=== PATIENT | male | born 1940 | race Caucasian/White ===

== ENCOUNTER → 2017-10-17 | Outpatient (CLI) | payer OTHER | LOC: BMCIMAGING 08:07 | PROVIDERS: ATTEND Orthopaedic Surgery | DX: G89.18 Other acute postprocedural pain (principal); M16.11 Unilateral primary osteoarthritis, right hip; Z96.651 Presence of right artificial knee joint ==

== ENCOUNTER 2017-11-27 02:47 | Emergency (ER) | payer OTHER ==
--- NOTE | 2017-11-27 03:02 | EDPHY ---
H & P Stated Complaint: DIZZY, NAUSEA, LIGHTHEADED Time Seen by Provider: 11/27/17 03:02 HPI/ROS: HPI CHIEF COMPLAINT: Dizziness with nausea HISTORY OF PRESENT ILLNESS: This is a very pleasant 77-year-old male, history of hypertension, presents emergency room with dizziness and nausea. Patient reports that around 10:00 p.m. Last night he was closing the curtain losing got dizzy her room spinning sensation with associated nausea. No headache. No neck pain. Denies chest pain or shortness of breath. Denies palpitations. It is worse when he moves his head side to side. This then resolved. States he went to bed and woke up with a leg crampy went to get out of bed stretches leg got dizzy again. Room spinning sensation. It is since now improved on almost resolved since arriving to the emergency room. He decided come the emergency room as it lasted over an hour and he felt nauseous with this. Past Medical History: Hypertension, hepatitis-A, duodenitis Past Surgical History: No recent surgery Social History: Denies drugs alcohol tobacco. Family History: Noncontributory ROS REVIEW OF SYSTEMS: A comprehensive 10 point review of systems is otherwise negative aside from elements mentioned in the history of present illness. Exam Constitutional appears well nontoxic no acute distress, triage nursing summary reviewed, vital signs reviewed, awake/alert. Eyes normal conjunctivae and sclera, EOMI, PERRLA. HENT normal inspection, atraumatic, moist mucus membranes, no epistaxis, neck supple/ no meningismus, no raccoon eyes. Respiratory clear to auscultation bilaterally, normal breath sounds, no respiratory distress, no wheezing. Cardiovascular rate normal, regular rhythm, no murmur, no edema, distal pulses normal. Gastrointestinal soft, non-tender, no rebound, no guarding, normal bowel sounds, no distension, no pulsatile mass. Genitourinary no CVA tenderness. Musculoskeletal no midline vertebral tenderness, full range of motion, no calf swelling, no tenderness of extremities, no meningismus, good pulses, neurovascularly intact. Skin pink, warm, & dry, no rash, skin atraumatic. Neurologic awake, alert and oriented x 3, AAOx3, moves all 4 extremities equally, motor intact, sensory intact, CN II-XII intact, normal cerebellar, normal vision, normal speech. Psychiatric normal mood/affect. Heme/Lymph/Immune no lymphadenopathy. Differential Diagnosis: Includes but is not limited to in a particular order acute vertigo, benign positional vertigo, Meniere's disease, posterior circulation stroke, intracranial bleed, electrolyte disturbance, acute HI, cardiac arrhythmia, orthostatic hypertension, dehydration Medical Decision Making: Plan for this patient IV establishment full phototypesetting equipment monitor IV fluid bolus after orthostatic vital signs, meclizine p. O., IV Valium , check electrolytes, EKG, troponin, CT head without and re-evaluate. Patient' s history most likely is vertigo. Benign positional. Will see if we can improvement with medications here. His symptoms have improved on her own since arriving. Re-evaluation: EKG interpretation by me on record in [employer] system. Impression time of EKG 3:12 a.m., sinus rhythm rate of 92, first-degree AV block present CA interval 224. No ST elevation no significant ST depression. No signs of cardiac arrhythmia. CT head without contrast called to me by Dr. Chavira. No acute bleed or stroke visualized. ED x-ray chest one view negative for acute cardiopulmonary disease. 0519: Blood work is reviewed. Negative troponin. Negative D-dimer. Electrolytes appropriate. Will re-evaluate at this time 0519AM: Re-examination at this time this patient is feeling 100% better. He denies any dizziness. Denies chest pain or shortness of breath. He denies any room spinning sensation with movement. Feels much better after meclizine p.o. And IV Valium and IV fluids. Vital signs have been stable. Current vital signs blood pressure 134/81, heart rate 91, pulse ox 96% on room air. 0521: Patient ambulated well throughout the emergency room without difficulty. Has a steady gait. Neurological exam is unremarkable. He would like to be discharged home. I will give him a prescription for meclizine. I have discussed return precautions with him he understands return emergency room if develops worsening dizziness, headache, vomiting can't ambulate worsening symptoms or questions or concerns. Clinical exam and workup consistent with most likely benign positional vertigo. No acute red flags to indicate posterior circulation stroke. No double vision , not sudden onset, worse with head movement. No significant vomiting. No trouble with speech. Dizziness worse with head movement. Source: Patient - Personal History Current Tetanus Diphtheria and Acellular Pertussis (TDAP): Unsure - Medical/Surgical History Hx Asthma: No Hx Chronic Respiratory Disease: No Hx Diabetes: No Hx Cardiac Disease: No Hx Renal Disease: No Hx Cirrhosis: No Hx Alcoholism: No Hx HIV/AIDS: No Hx Splenectomy or Spleen Trauma: No Other PMH: HTN, HEP A, KNEE REPLACEMENT, YANETH SHOULDER REPLACMENT, GI BLEED - Social History Smoking Status: Never smoked Constitutional: Initial Vital Signs Temperature (C) 36.5 C 11/27/17 02:56 Heart Rate 93 11/27/17 02:56 Respiratory Rate 16 11/27/17 02:56 Blood Pressure 124/66 H 11/27/17 02:56 O2 Sat (%) 90 L 11/27/17 02:56 O2 Delivery Mode Nasal Cannula O2 (L/minute) 2 Allergies/Adverse Reactions: ibuprofen Allergy (Intermediate, Verified 03/27/15 15:23) Other-Enter Comments ciprofloxacin [From Cipro] Allergy (Mild, Verified 03/27/15 15:23) ciprofloxacin HCl [From Cipro] Allergy (Mild, Verified 03/27/15 15:23) Home Medications: Medication Instructions Recorded Acetaminophen [Tylenol Extra 500 mg PO HS 02/03/15 Strength] Lisinopril [Zestril] 10 mg PO DAILY 02/03/15 Meclizine HCl [Meclizine HCl 25 mg 25 mg PO BID #10 tab 11/27/17 (RX,OTC)] Medical Decision Making - Data Points Laboratory Results: Laboratory Results 11/27/17 03:13 11/27/17 03:55 11/27/17 11/27/17 11/27/17 04:30 03:55 03:55 WBC RBC Hgb Hct MCV MCH MCHC RDW Plt Count MPV Neut % (Auto) Lymph % (Auto) [place] % (Auto) Eos % (Auto) Baso % (Auto) Nucleat RBC Rel Count Absolute Neuts (auto) Absolute Lymphs (auto) Absolute Monos (auto) Absolute Eos (auto) Absolute Basos (auto) Absolute Nucleated RBC Immature Gran % Immature Gran # PT 13.0 SEC SEC REJ (12.0-15.0) INR 0.96 REJ (0.83-1.16) APTT 21.7 SEC L SEC REJ (23.0-38.0) D-Dimer 0.40 ug/mLFEU ug/mLFEU (0.00-0.50) Turbidity Sodium Potassium Chloride Carbon Dioxide Anion Gap BUN Creatinine Estimated GFR Glucose Calcium Magnesium 1.8 mg/dL mg/dL (1.6-2.3) Total Bilirubin 0.4 mg/dL mg/dL (0.1-1.4) Conjugated Bilirubin 0.4 mg/dL mg/dL (0.0-0.5) Unconjugated Bilirubin 0.0 mg/dL mg/dL (0.0-1.1) AST 22 IU/L IU/L (17-59) ALT 29 IU/L IU/L (21-72) Alkaline Phosphatase 42 IU/L IU/L (38-126) Creatine Kinase 158 IU/L IU/L (0-224) CK-MB (CK-2) Fraction 3.60 ng/mL H ng/mL (0.00-3.19) CK-MB (CK-2) % Pending Creatine Kinase Interp Pending Troponin I < 0.012 ng/mL ng/mL (0.000-0.034) NT-Pro-B Natriuret Pep Pending Total Protein 5.8 g/dL L g/dL (6.3-8.2) Albumin 3.2 g/dL L g/dL (3.5-5.0) Specimen Hemolysis 11/27/17 11/27/17 11/27/17 03:55 03:13 03:13 WBC RBC Hgb Hct MCV MCH MCHC RDW Plt Count MPV Neut % (Auto) Lymph % (Auto) [place] % (Auto) Eos % (Auto) Baso % (Auto) Nucleat RBC Rel Count Absolute Neuts (auto) Absolute Lymphs (auto) Absolute Monos (auto) Absolute Eos (auto) Absolute Basos (auto) Absolute Nucleated RBC Immature Gran % Immature Gran # PT REJ INR REJ APTT REJ D-Dimer REJ Turbidity REJ Sodium 140 mEq/L mEq/L REJ (135-145) Potassium 4.0 mEq/L mEq/L REJ (3.5-5.2) Chloride 108 mEq/L mEq/L REJ (97-110) Carbon Dioxide 24 mEq/l mEq/l REJ (22-31) Anion Gap 8 mEq/L mEq/L REJ (8-16) BUN 21 mg/dL mg/dL REJ (7-23) Creatinine 0.8 mg/dL mg/dL REJ (0.7-1.3) Estimated GFR > 60 REJ Glucose 114 mg/dL H mg/dL REJ (70-100) Calcium 8.7 mg/dL mg/dL REJ (8.5-10.4) Magnesium REJ Total Bilirubin REJ Conjugated Bilirubin REJ Unconjugated Bilirubin REJ AST REJ ALT REJ Alkaline Phosphatase REJ Creatine Kinase REJ CK-MB (CK-2) Fraction REJ CK-MB (CK-2) % Creatine Kinase Interp Troponin I REJ NT-Pro-B Natriuret Pep REJ Total Protein REJ Albumin REJ Specimen Hemolysis REJ 11/27/17 03:13 WBC 6.88 10^3/uL 10^3/uL (3.80-9.50) RBC 4.82 10^6/uL 10^6/uL (4.40-6.38) Hgb 15.6 g/dL g/dL (13.7-17.5) Hct 46.1 % % (40.0-51.0) MCV 95.6 fL fL (81.5-99.8) MCH 32.4 pg pg (27.9-34.1) MCHC 33.8 g/dL g/dL (32.4-36.7) RDW 13.5 % % (11.5-15.2) Plt Count 200 10^3/uL 10^3/uL (150-400) MPV 10.0 fL fL (8.7-11.7) Neut % (Auto) 47.5 % % (39.3-74.2) Lymph % (Auto) 38.2 % % (15.0-45.0) [place] % (Auto) 9.3 % % (4.5-13.0) Eos % (Auto) 4.1 % % (0.6-7.6) Baso % (Auto) 0.6 % % (0.3-1.7) Nucleat RBC Rel Count 0.0 % % (0.0-0.2) Absolute Neuts (auto) 3.27 10^3/uL 10^3/uL (1.70-6.50) Absolute Lymphs (auto) 2.63 10^3/uL 10^3/uL (1.00-3.00) Absolute Monos (auto) 0.64 10^3/uL 10^3/uL (0.30-0.80) Absolute Eos (auto) 0.28 10^3/uL 10^3/uL (0.03-0.40) Absolute Basos (auto) 0.04 10^3/uL 10^3/uL (0.02-0.10) Absolute Nucleated RBC 0.00 10^3/uL 10^3/uL (0-0.01) Immature Gran % 0.3 % % (0.0-1.1) Immature Gran # 0.02 10^3/uL 10^3/uL (0.00-0.10) PT INR APTT D-Dimer Turbidity Sodium Potassium Chloride Carbon Dioxide Anion Gap BUN Creatinine Estimated GFR Glucose Calcium Magnesium Total Bilirubin Conjugated Bilirubin Unconjugated Bilirubin AST ALT Alkaline Phosphatase Creatine Kinase CK-MB (CK-2) Fraction CK-MB (CK-2) % Creatine Kinase Interp Troponin I NT-Pro-B Natriuret Pep Total Protein Albumin Specimen Hemolysis Medications Given: Discontinued Medications Diazepam (Valium) 5 mg IVP EDNOW ONE Stop: 11/27/17 03:11 Last Admin: 11/27/17 03:36 Dose: 5 mg Sodium Chloride (Ns) 1,000 mls @ 0 mls/hr IV EDNOW ONE; Wide Open PRN Reason: Protocol Stop: 11/27/17 03:05 Last Admin: 11/27/17 03:04 Dose: 1,000 mls Meclizine HCl (Meclizine Hcl) 25 mg PO EDNOW ONE Stop: 11/27/17 03:11 Last Admin: 11/27/17 03:35 Dose: 25 mg Departure - Departure Disposition: Home, Routine, Self-Care Clinical Impression: Vertigo Condition: Good Instructions: Vertigo (ED) Additional Instructions: 1. Stay well-hydrated drink lots of fluids. 2. Return emergency room if you have worsening dizziness vomiting or unable to walk her feel bad. 3. Encourage you to follow up with her primary care doctor. Referrals: James Aviles MD [Primary Care Provider] - As per Instructions Prescriptions: Meclizine HCl [Meclizine HCl 25 mg (RX,OTC)] 25 mg PO BID #10 tab
[2017-11-27] MEDS ORDERED: NS 1,000 ML IV ONE (03:04)
[2017-11-27] MEDS ORDERED: MECLIZINE HCL 25 MG TAB PO ONE (03:10)
[2017-11-27] MEDS ORDERED: DIAZEPAM 5 MG/ML 1 ML SYR IVP ONE (03:10)
--- NOTE | 2017-11-27 03:14 | CPEKG ---
Heart Rate: 92 RR Interval: 652 P-R Interval: 224 QRSD Interval: 90 QT Interval: 380 QTC Interval: 471 P [place]: 80 QRS [place]: 39 T Wave [place]: 13 EKG Severity - ABNORMAL ECG - EKG Impression: SINUS RHYTHM EKG Impression: FIRST DEGREE AV BLOCK Electronically Signed By: Jignesh Griffiths 27-Nov-2017 07:18:10
[2017-11-27 03:49] LABS: PLATELET COUNT 200 10^3/uL (150-400)
[2017-11-27 04:43] LABS: INR 0.96 (0.83-1.16)
[2017-11-27 05:01] LABS: CREATINE KINASE 158 IU/L (0-224)
[2017-11-27] MEDS ORDERED: NS 500 ML IV ONE (05:26)
[2017-11-27 06:26] VITALS: BP 130/85
== END 2017-11-27 06:24 | disposition home or self-care (01) ==
DX: R42 Dizziness and giddiness (principal); E86.9 Volume depletion, unspecified; I10 Essential (primary) hypertension
CPT/HCPCS: 70450; 71045; 93005; 96361; 96374; 99285; J3360

== ENCOUNTER → 2018-05-29 | Outpatient (CLI) | payer OTHER ==
[~2018-05-29] MED LIST: IOPAMIDOL (ISOVUE 370) 100 ML BTL IV ONE
== END ==
LOC: FIMAGING 10:39
PROVIDERS: ATTEND Internal Medicine
DX: R42 Dizziness and giddiness (principal); I25.2 Old myocardial infarction; R91.1 Solitary pulmonary nodule
CPT/HCPCS: 70450; 70496; 70498; Q9967

== ENCOUNTER → 2018-12-11 | Outpatient (CLI) | payer OTHER | LOC: FIMAGING 07:21 | PROVIDERS: ATTEND Orthopaedic Surgery | DX: M17.12 Unilateral primary osteoarthritis, left knee (principal); Z96.652 Presence of left artificial knee joint ==

== ENCOUNTER 2018-12-29 10:19 | Observation (INO) | payer OTHER | END 2018-12-30 14:23 | disposition home health service (06) | LOC: F3N 10:19 → F2W 10:19 → F3N 13:39 ==